=== PATIENT | male | born 2000 | race Two or more races ===

== ENCOUNTER 2025-09-19 12:55 | Emergency (ER) | payer OTHER ==
[~2025-09-19] VITALS: Ht 185.4 cm; Wt 129.2 kg
--- NOTE | 2025-09-19 13:12 | ECG ---
[facility] Test Date: 2025-09-19 Test Time: 13:00:13 Pat Name: WAI YEUNG Department: Room: Gender: M Account Supervisor: GP : [id number] Requested By: BRIAN HUANG Order Number: [id number] Reading MD: Remi Payne Measurements Intervals [place] Rate: 70 P: 41 [place]: 154 QRS: 100 QRSD: 93 T: 6 QT: 381 QTc: 412 Interpretive Statements Sinus rhythm Borderline right axis deviation Electronically Signed On 09-21-2025 10:57:46 PST by Remi Payne Please click the below link to view image of tracing.
[2025-09-19 13:54] LABS: Hematocrit 45.5 % (41.0-53.0); Hemoglobin 15.6 g/dL (13.5-17.5); Mean Corpuscular Hemoglobin 30.6 pg (28.0-32.0); Mean Corpuscular Volume 89.0 fL (80.0-100.0); Nucleated Red Blood Cells % 0.1 %
[2025-09-19 13:56] LABS: Chloride 106 mmol/L (98-107); Potassium 4.0 mmol/L (3.5-5.1); Sodium 141 mmol/L (136-145)
[2025-09-19 13:57] LABS: Anion Gap 10 (5-15); Calcium 9.5 mg/dL (8.7-10.4); Carbon Dioxide 25 mmol/L (20-31)
[2025-09-19 14:02] LABS: BUN/Creatinine Ratio 14.0 (10.0-20.0); Blood Urea Nitrogen 12 mg/dL (9-23); Glucose 84 mg/dL (74-106)
--- NOTE | 2025-09-19 15:41 | ED.PDOC ---
History of Present Illness HPI Comments 24-year-old, obese male presents with chief complaint of 1x isolated episode of nonradiating, substernal chest pain and lightheadedness an hour ago, earlier, today. Patient endorses onset, unprovoked, atraumatic onset of symptoms, while at work, which last a few minutes in duration. Pain was sharp in quality, with no previous history of in the past. No recent prior elements, sick contacts, travel, injuries, or permanent medical, surgical, social, or family history endorsed. Patient denies on having any current chest pain, shortness a breath, dizziness, or further acute symptoms at this time. Chief Complaint: Chest Pain Time Seen by MD: 13:00 Reviewed Notes: Nurses Notes, Allergies Allergies: Coded Allergies: NO KNOWN ALLERGIES (Unverified , 09/19/25) Information Source: Patient Mode of Arrival: Ambulatory Severity: Moderate Timing: Hours Duration: Minutes Prehospital treatment: None Past Medical History PAST MEDICAL HISTORY: Denies Surgical History: Denies all surgeries Family History Family History: No family hx of Cancer, No family hx of DM, No family hx of Heart angelina, No family hx of HTN, No family hx ofKidney angelina, No family hx of Liver angelina, No family hx of Lung angelina, No family hx of Stroke Social History Smoker: Non-Smoker Alcohol: Denies ETOH Use Drugs: Denies Drug Use Lives In: Home All Other Systems: Reviewed and Negative (Comprehensive review of systems are negative unless otherwise stated in HPI) Physical Exam General Appearance: No Apparent Distress, Obese HEENT: Normal ENT Inspection, Pharynx Normal, TMs Normal Neck: Full Range of Motion, Non-Tender, Normal, Normal Inspection Respiratory: Chest Non-Tender, Lungs Clear, No Accessory Muscle Use, No R espiratory Distress, Normal Breath Sounds Cardiovascular: No Edema, No JVD, No Murmur, No Gallop, Normal Peripheral Pulses, Regular Rate/Rhythm Breast Exam: Deferred Gastrointestinal: No Organomegaly, Non Tender, No Pulsatile Mass, Normal Bowel Sounds, Soft Genitalia: Deferred Pelvic: Deferred Rectal: Deferred Extremities: No calf tenderness, Normal capillary refill, Normal inspection, Normal range of motion, Non-tender, No pedal edema Musculoskeletal : Apperance: Normal Neurologic: Alert, sandwich maker II-XII nml as Tested, No Motor Deficits, Normal Affect, Normal Mood, No Sensory Deficits Cerebellar Function: Normal Reflexes: Normal Skin: Dry, Normal Color, Warm Lymphatic: No Adenopathy Was a procedure done? Was a procedure done?: No EKG EKG : Pulse Rate (adult): 70 [place]: Normal Cardiac Rhythm: NSR Block: None Hypertrophy: None ST: Normal Differential Dx Considerations may include: Mi, PE, ACS, URI, pneumonia, angina, anxiety, among others X-Ray, Labs, Meds, VS Vital Signs Date Time Temp Pulse Resp B/P (MAP) Pulse Ox O2 Delivery O2 Flow Rate FiO2 09/19/25 15:41 70 09/19/25 15:21 97.4 98 18 131/67 98 97.4 09/19/25 13:57 67 09/19/25 13:00 70 Lab Test 09/19/25 16:41 09/19/25 14:30 09/19/25 13:31 Range/Units Troponin I High Sensitivity < 3 L < 3 L < 3 L </=54 ng/L White Blood Count 7.4 4.4-10.8 10^3/uL Red Blood Count 5.11 4.5-5.90 10^6/uL Hemoglobin 15.6 13.5-17.5 g/dL Hematocrit 45.5 41.0-53.0 % Mean Corpuscular Volume 89.0 80.0-100.0 fL Mean Corpuscular Hemoglobin 30.6 28.0-32.0 pg Mean Corpuscular Hemoglobin Concent 34.4 32.0-36.0 g/dL Red Cell Distribution Width 12.7 11.8-14.3 % Platelet Count 298 140-450 10^3/uL Mean Platelet Volume 7.7 6.9-10.8 fL Neutrophils (%) (Auto) 74.1 37.0-80.0 % Lymphocytes (%) (Auto) 17.9 10.0-50.0 % Monocytes (%) (Auto) 7.3 0.0-12.0 % Eosinophils (%) (Auto) 0.2 0.0-7.0 % Basophils (%) (Auto) 0.5 0.0-2.0 % Neutrophils # (Auto) 5.4 1.6-8.6 10 ^3/uL Lymphocytes # (Auto) 1.3 0.4-5.4 10 ^3/uL Monocytes # (Auto) 0.5 0-1.3 10 ^3/uL Eosinophils # (Auto) 0 0-0.8 10 ^3/uL Basophils # (Auto) 0 0-0.2 10 ^3/uL Nucleated Red Blood Cells 0.1 % Sodium Level 141 136-145 mmol/L Potassium Level 4.0 3.5-5.1 mmol/L Chloride Level 106 98-107 mmol/L Carbon Dioxide Level 25 20-31 mmol/L Anion Gap 10 5-15 Blood Urea Nitrogen 12 9-23 mg/dL Creatinine 0.86 0.700-1.30 mg/dL Glomerular Filtration Rate Calc 124 >90 mL/min BUN/Creatinine Ratio 14.0 10.0-20.0 Serum Glucose 84 74-106 mg/dL Calcium Level 9.5 8.7-10.4 mg/dL Time of 1ST Reevaluation: 13:30 Reevaluation 1ST: Unchanged Patient Education/Counseling: Diagnosis, Treatment, Need For Follow Up Family Education/Counseling: No Family Present Additional Information Additional historians: None Previous medical visits reviewed: None Additional imaging and studies ordered and reviewed: EKG, chest x-ray Labs ordered and reviewed: CBC, BMP SEPSIS Sepsis Screen Date sepsis recognized/suspect: Sep 19, 2025 Time Sepsis recognized/suspect: 1300 Recent Procedure: No On Antibiotic Therapy: No Respiratory Rate >20: No Heart Rate >90: No Temp<36 C (96.8 F) or >38.3 C: No SBP <90 or MAP <65 mmHG: No New Acute Mental Status Change: No Is the patient on CPAP, BIPAP,: No Physician Orders Urinalysis (09/19/25 13:03) Electrocardigram (09/19/25 14:10) Electrocardigram (09/19/25 16:10) Chest Portable (09/19/25 13:09) Vital Signs Date Time Temp Pulse Resp B/P (MAP) Pulse Ox O2 Delivery O2 Flow Rate FiO2 09/19/25 15:41 70 09/19/25 15:21 97.4 98 18 131/67 98 97.4 09/19/25 13:57 67 09/19/25 13:00 70 Laboratory Tests Test 09/19/25 13:31 White Blood Count 7.4 10^3/uL (4.4-10.8) Departure 1 Departure Time of Disposition: 17:41 (Patient presented with chest pain that was concerning for possible STEMI, ACS, PE, Pneumonia, Muscle Strain, COPD, Dissection. Data: 1. I ordered and reviewed the result of at least 3 labs including a CBC, BMP, and Troponin. 2. I independently interpreted the following tests: EKG which shows normal sinus rhythm and Chest X-ray which shows a benign chest.Risk:This patient presented with a high risk of morbidity due to further diagnostic testing or treatment and may suffer from an acute cardiac or respirat ory disorder. After review of all the data patient is unlikely to have a pe , dissection, and is low risk for acs. Patient is stable at this time.Workup so far is benign and patient will be discharged with outpatient followup. ) Impression: Primary Impression: Acute chest pain Disposition: HOME / SELF CARE / HOMELESS Condition: Stable Additional Instructions: You presented today with chest pain. Your workup today was benign including labs, troponin, EKG, chest x-ray. Your pain may be from musculoskeletal strain, acid reflux, anxiety, or many other factors. It is important to follow up with your regular doctor within 1 week. If your symptoms worsen or you have any other concerns please return to the emergency room. Discharged With: Self Critical Care Note Critical Care Time?: No Stability Stability form required: No Heart Score Heart Score: Heart Score Response (Comments) Value History Slightly Suspicious 0 EKG Normal 0 Age <45 0 Risk Factors No known risk factors 0 Troponin Normal limit 0 Total 0 I personally scribed for BRIAN HUANG MD ([email or web address]) on 09/19/25 at 15:41. Electronically submitted by Jimi Graham [email or web address]). BRIAN HUANG MD Sep 19, 2025 15:41
[2025-09-19 18:16] VITALS: BP 142/87; PULSE 63; RESP 16; TEMP 98.3; O2SAT 100
--- NOTE | 2025-09-19 19:32 | DVH ---
CHEST RADIOGRAPH Indication: cp Technique: Single frontal view of the chest was obtained COMPARISON: None FINDINGS: Lines and Tubes: None Lungs: Clear Pleura: No effusion. No pneumothorax. Cardiomediastinal contours: Unremarkable Bones: Unremarkable IMPRESSION: No acute disease.
--- NOTE | 2025-09-23 09:59 | ECG ---
[facility] Test Date: 2025-09-19 Test Time: 13:57:10 Pat Name: WAI YEUNG Department: Room: Gender: M Authorizer: [facility] : [id number] Requested By: BRIAN HUANG Order Number: [id number] Reading MD: Remi Payne Measurements Intervals [place] Rate: 67 P: 40 ID: [id number] QRS: 90 QRSD: 94 T: 1 QT: 394 QTc: 416 Interpretive Statements Sinus rhythm Borderline right axis deviation Borderline ST depression, inferior leads Electronically Signed On 09-25-2025 15:38:44 PST by Remi Payne Please click the below link to view image of tracing.
== END 2025-09-19 18:19 | disposition home or self-care (01) ==
LOC: ER 12:55
DX: R07.89 Other chest pain (principal); E66.9 Obesity, unspecified; Z68.37 Body mass index [BMI] 37.0-37.9, adult
CPT/HCPCS: 36415; 71045; 80048; 84484; 85025; 93005